=== PATIENT | female | born 1945 | race Caucasian/White ===

== ENCOUNTER 2016-10-30 18:38 | Emergency (ER) | payer MEDICARE, OTHER ==
[2016-10-30] MEDS ORDERED: DILTIAZEM HCL 5 MG/ML VIAL IV ONE ×4 (18:54→19:27)
[2016-10-30] MEDS ORDERED: NORMAL SALINE 1,000 ML IV PRN ×2 (19:02→20:42)
--- NOTE | 2016-10-30 19:04 | ERNOTE ---
<Isi Woods - Last Filed: 10/30/16 21:55> Medical Problem HPI - General Chief Complaint: Nausea/Vomiting Source: patient Exam Limitations: no limitations - Immun/Allergies/Home Medications Immunizations: IMMUNIZATION HX Immunizations Up to Date Yes History of Influenza Vaccine Yes Allergies/Adverse Reactions: Allergies midazolam [From Versed] Allergy (Verified 10/30/16 18:53) Penicillins Allergy (Verified 10/30/16 18:53) Home Medications: HOME MEDICATIONS Apixaban [Eliquis] 5 mg PO BID 10/30/16 [Last Taken Unknown] Lisinopril/Hydrochlorothiazide [Lisinopril-Hctz 10-12.5 mg Tab] 1 each PO DAILY 10/30/16 [Last Taken Unknown] NIFEdipine [Adalat cc] 30 mg PO DAILY 10/30/16 [Last Taken Unknown] Ranitidine HCl [Zantac] 150 mg PO BID 10/30/16 [Last Taken Unknown] Sotalol HCl [Sorine] 80 mg PO BID 10/30/16 [Last Taken Unknown] glyBURIDE,MICRONIZED [Glyburide Micronized] 6 mg PO BID 10/30/16 [Last Taken Unknown] metFORMIN HCL [Glucophage] 1,000 mg PO BIDWM 10/30/16 [Last Taken Unknown] - History of Present History Narrative: Patient states that she has not felt well in about three days, she has had intermittent nausea and vomiting and has not kept any medications down in 36 hours. She denies any abdominal pain, no diarrhea, no urinary symptoms. She has had some chills and generalized weakness. About two weeks ago she was cardioverted in a hospital in [facility] (for atrial fibrillation?), she does not have any palpitations or chest pain currently. In the ambulance on the monitor she had SR with PVCs. - Patient's Past Medical History Patient History - Medical: Diabetes Type 2, GERD Patient History - Cardiac/Respiratory: Atrial Fibrillation, Arrhythmias, Hypertension Patient History - Cancer: No Hx of Cancer Patient History - Surgical Procedures: , Other - benign ovarian tumor removal - Immunizations Immunizations Up to Date: Yes History of Influenza Vaccine: Yes Physical Exam - Physical Exam General Appearance: Present: wd/wn, alert, no apparent distress Eye Exam: Normal inspection: bilateral Ears, Nose, Throat: Present: normal pharynx Respiratory: Present: no respiratory distress, normal breath sounds, no accessory muscle use, lungs clear Cardiovascular/Chest: Present: tachycardia Gastrointestinal/Abdominal: Present: normal bowel sounds, nontender, nondistended, soft Extremity Exam: Present: no edema Neurological Exam: Present: alert, oriented, normal mood/affect, no motor/ sensory deficits Skin Exam: Present: normal color, warm/dry ED Progress - Results and Orders Patient's Lab Results:: I have reviewed the patient's lab results. - Vital Signs Patient's Vital Signs:: I have reviewed the patient's vital signs. Vital Signs: Vital Signs 10/30/16 10/30/16 18:46 18:56 Temperature 36.7 C Pulse Rate 178 H 179 H Respiratory 20 Rate Blood Pressure 132/65 O2 Sat by Pulse 96 Oximetry - EKG EKG: atrial fibrillation - with AVR, HR 172, ST depression - inferior leads and V3-6 EKG read: Interp. by me - Progress/Reassessment Chief Complaint: Nausea/Vomiting Progress Note-Subjective: 10/30/16 19:14 after cardizem 20mg IV HR from 170-190 down to 150-160 10/30/16 19:30 HR still elevated 160-170, will give another dose of cardizem 10/30/16 19:51 BP 90/40, will hold off on cardizem and give IV fluids first patient meets sepsis criteria with WBC and HR, UCS consistent with infection, will start rocephin Ketone positive and glucose >400 consistent with DKA 10/30/16 20:00 explained results to patient and plan to admit once HR is more controlled 10/30/16 20:17 upon patients request I called her PCP (Dr Anil Brito #[phone])and updated him on patients diagnosis and treatment 10/30/16 20:44 patient maintains blood pressure after second dose of cardizem, HR 140-160 10/30/16 21:37 supraventricular tachycardia HR 200, concerning for SVTs 10/30/16 22:00 no change with adenosine 6mg, after adenosine 12mg return to afib with RVR HR 170-180's - Transfer of Care Physician Sign Out: Isi Woods Receiving Physician: Jose L Bangura Expected Disposition: Admit Departure - Departure Clinical Impression: Atrial fibrillation with RVR, Ventricular tachycardia UTI (urinary tract infection) Qualifiers: Urinary tract infection type: acute cystitis Hematuria presence: with hematuria Qualified Code(s): N30.01 - Acute cystitis with hematuria Sepsis Qualifiers: Sepsis type: sepsis due to unspecified organism Qualified Code(s): A41.9 - Sepsis, unspecified organism DKA (diabetic ketoacidoses) Qualifiers: Diabetes mellitus type: type 2 Diabetes mellitus complication detail: without coma Qualified Code(s): E13.10 - Other specified diabetes mellitus with ketoacidosis without coma Disposition: [facility] Condition: Serious <Jose L Bangura - Last Filed: 10/31/16 03:33> Medical Problem HPI - Immun/Allergies/Home Medications Immunizations: IMMUNIZATION HX Immunizations Up to Date Yes History of Influenza Vaccine Yes ED Progress - Vital Signs Vital Signs: Vital Signs 10/30/16 10/30/16 10/30/16 18:46 18:56 19:08 Temperature 36.7 C Pulse Rate 178 H 179 H 155 H Respiratory 20 20 Rate Blood Pressure 132/65 139/76 O2 Sat by Pulse 96 97 Oximetry 10/30/16 10/30/16 10/30/16 19:19 19:35 19:49 Temperature Pulse Rate 173 H 175 H 174 H Respiratory 20 20 20 Rate Blood Pressure 113/69 90/60 133/58 O2 Sat by Pulse 98 97 98 Oximetry 10/30/16 10/30/16 10/30/16 20:05 20:06 20:21 Temperature 37.2 C Pulse Rate 160 H 160 H 133 H Respiratory 18 18 Rate Blood Pressure 141/72 141/72 134/69 O2 Sat by Pulse 100 98 Oximetry 10/30/16 10/30/16 10/30/16 20:45 21:13 21:31 Temperature 38.2 C H Pulse Rate 167 H 178 H 179 H Respiratory 18 18 16 Rate Blood Pressure 149/107 169/71 165/78 O2 Sat by Pulse 98 98 94 Oximetry 10/30/16 10/30/16 10/30/16 22:00 22:01 22:16 Temperature Pulse Rate 172 H 182 H 161 H Respiratory 16 16 16 Rate Blood Pressure 126/68 154/80 131/63 O2 Sat by Pulse 95 96 94 Oximetry 10/30/16 10/30/16 22:26 22:37 Temperature 37 C Pulse Rate 166 H 168 H Respiratory 16 16 Rate Blood Pressure 131/63 121/55 O2 Sat by Pulse 94 93 Oximetry - Progress/Reassessment Progress:: Unchanged Progress Note-Subjective: Assumed care from Dr. Woods at 22:30 Dr. Woods gave amiodarone 150 mg IV prior to hand-off. Pt continues to run a fib with RVR at 150-160. Decision made to transfer care to [facility] for higher level of care. 10/30/16 22:[address] Man at [facility]. He agrees to accept the patient in transfer 10/30/16 23:58 Pt had been running in A-fib with RVR at 120-140 without symtoms, while waiting for transport to arrive. [facility] arrived and began to prepare the patient for transport. HR went up to 225 in a regular wide complex tachycardia. pt still denied pain. Adenosine 6 mg was given IV while preparations were being made to cardiovert the patient. Adenosine had no effect on HR or rhythm. Blood pressure dropped to 90/53 and patient was lathargic (more than she had already been). Syncronized cardioversion was accomplished at 50j. Pt tolerated cardioversion and converted back into a-fib with RVR at 130-150. BP rebounded to 130/70. Pt was taken to [facility] by [facility] life team. 10/31/16 03:28
[2016-10-30 19:16] LABS: Hematocrit 44.4 % (37.0-47.0); Hemoglobin 15.1 gm/dL (12.5-16.0); Mean Cell Volume 87.9 fl (78-100); Mean Corpuscular Hemoglobin 29.9 pg (27-31); Mean Platelet Volume 12.1 fl (6.0-9.5); Platelet Count 173 K/mm3 (150-450); Red Blood Count 5.05 M/mm3 (4.2-5.4); Red Cell Distribution Width 12.6 % (11.5-14.0); White Blood Count 18.1 K/mm3 (4.0-10.5)
[2016-10-30 19:21] LABS: Total Cells Counted 100
[2016-10-30] MEDS ORDERED: NORMAL SALINE 1,000 ML IV ONE (19:27)
[2016-10-30 19:34] LABS: Urine Appearance Slightly Cloudy; Urine Bilirubin Negative (NEGATIVE); Urine Blood 50 /ul (NEGATIVE); Urine Color Yellow; Urine Ketone 15 mg/dL (NEGATIVE); Urine Nitrite Negative (NEGATIVE); Urine Protein 30 mg/dL (NEGATIVE); Urine Specific Gravity 1.015 SP.GR. (1.005-1.010); Urine Urobilinogen Normal (NORMAL)
[2016-10-30 19:35] LABS: Urine Bacteria 4+
[2016-10-30 19:41] LABS: ALT 18 U/L (19-67); AST 15 U/L (0-48); Albumin * 2.6 gm/dl (3.4-5.0); Alkaline Phosphatase * 210 U/L (50-170); Anion Gap 20.9 mmol/L (6.8-13.8); BUN/Creatinine Ratio 35.2 (9.0-21.6); Bilirubin, Total 0.6 mg/dL (0.0-1.1); Blood Urea Nitrogen 68 mg/dL (3-23); Ca. Corrected For Albumin 9.7 mg/dL (8.4-10.2); Calcium * 8.9 mg/dL (7.9-10.9); Carbon Dioxide 23.7 mmol/L (24-32.6); Chloride 91 mmol/L (97-106); Glucose * 408 mg/dL (70-110); Potassium 3.6 mmol/L (3.4-4.6); Sodium 132 mmol/L (132-142); TSH * 1.914 uIU/mL (0.358-3.74); Troponin I 0.017 ng/ml (0.00-0.10)
[2016-10-30] MEDS ORDERED: INSULIN REGULAR HUMAN REC 100 UNITS in NORMAL SALINE 100 ML IV PRN (19:53)
[2016-10-30 19:55] LABS: Atypical (Reactive) Lymph 1 % (0-2); Band 15 % (0-2.0); Immature Granulocyte 2 (0-1); Lymphocyte 2 % (20-51); Monocyte 1 % (0-9); Neutrophil 79 % (42-75); Neutrophil # 14.3 K/mm3 (1.3-6.0)
[2016-10-30 19:59] LABS: Toxic Granulation 3+
[2016-10-30 20:00] LABS: Platelet Estimate Normal (NORMAL); RBC Morphology Normal (NORMAL)
[2016-10-30] MEDS ORDERED: ONDANSETRON HCL/PF 2 MG/ML VIAL IV ONE (20:53)
[2016-10-30] MEDS ORDERED: DILTIAZEM HCL 125 MG in DEXTROSE 5 % IN WATER 100 ML IV PRN ×2 (20:53)
[2016-10-30] MEDS ORDERED: ACETAMINOPHEN 650 MG SUPP.RECT RC ONE (20:56)
[2016-10-30] MEDS ORDERED: ACETAMINOPHEN 650 MG SUPP.RECT ONE (20:58)
[2016-10-30] MEDS ORDERED: ONDANSETRON HCL/PF 2 MG/ML VIAL ONE (20:58)
[2016-10-30] MEDS ORDERED: ADENOSINE 3 MG/ML DISP.SYRIN IV ONE ×2 (21:37→21:50)
[2016-10-30] MEDS ORDERED: AMIODARONE HCL 50 MG/ML AMPUL IV STA (21:56)
[2016-10-30 23:27] VITALS: BP 108/57
[2016-10-30] MEDS ORDERED: MORPHINE SULFATE 4 MG/ML SYRG ONE (23:41)
== END 2016-10-31 00:13 | disposition short-term general hospital (02) ==
LOC: ER 18:38
PROC: 0T9B7ZZ Drainage of Bladder, Via Natural or Artificial Opening (ICD-10-PCS; principal; 2016-10-30)
DX: I48.0 Paroxysmal atrial fibrillation (principal); I47.2 Ventricular tachycardia; N30.01 Acute cystitis with hematuria; Z79.01 Long term (current) use of anticoagulants; A49.1 Streptococcal infection, unspecified site; E13.10 Other specified diabetes mellitus with ketoacidosis without coma